=== PATIENT | female | born 2000 | race Asian ===

== ENCOUNTER 2023-07-27 19:57 | Emergency (ER) | payer OTHER ==
[~2023-07-27] VITALS: Ht 157.5 cm; Wt 70.3 kg
[2023-07-27 20:22] VITALS: BP_SYST 124; PULSE 84; RESP 16; TEMP 98.1; O2SAT 96
[2023-07-27 21:57] VITALS: BP_SYST 124; PULSE 84; RESP 16; TEMP 98.1; O2SAT 96
[2023-07-31 03:07] LABS: HEPATITIS B CORE AB, TOTAL Negative (Negative); HEPATITIS B SURFACE AG Negative (Negative); HEPATITIS C VIRUS AB Non Reactive (Non Reactive)
== END 2023-07-27 22:07 | disposition home or self-care (01) ==
LOC: SED 19:57
DX: S61.235A Puncture wound without foreign body of left ring finger without damage to nail, initial encounter (principal); W46.0XXA Contact with hypodermic needle, initial encounter; Y93.89 Activity, other specified; Y92.89 Other specified places as the place of occurrence of the external cause; Y99.8 Other external cause status
CPT/HCPCS: 36415; 86704; 86706; 86803; 87340; 99283